=== PATIENT | male | born 1955 | race Hispanic/Latino ===

== ENCOUNTER 2017-09-02 08:41 | Day surgery (SDC) | payer OTHER, SELFPAY ==
--- NOTE | 2017-09-02 | PATH_ITS ---
[facility] Accession Number: [id number] . 01 Material submitted: . PART A: CECAL POLYP PART B: ASCENDING COLON POLYP PART C: ASCENDING COLON POLYP-LARGER ONE . 02 Diagnosis: A. Cecal Polyp: Small serrated lesion, consistent with early sessile serrated adenoma. Additional step-sections examined. . B. Ascending Colon Polyp: Colonic mucosa with no diagnostic abnormality, consistent with polypoid redundancy. Negative for serrated lesion, dysplasia or malignancy. Additional step-sections examined. . C. Ascending Colon Polyp, Larger: Sessile serrated adenoma. I/09/04/2017 . 02 Electronically signed: . Fox Sparks MD, PhD, Pathologist NPI- [id number] . 01 Gross description: . Received are three formalin-filled containers, each labeled with the patient's name: . A. In a container labeled cecal polyp, the specimen consists of two 0.1-0.3 cm portions of tissue, entirely submitted in cassette A. B. In a container labeled ascending colon polyp, the specimen consists of a 0.3 cm portion of tissue, entirely submitted in cassette B. C. In a container labeled ascending colon polyp larger, the specimen consists of a 0.5 cm portion of tissue and mucoid material, entirely submitted in cassette C. ([id number]) /FRR . 02 Pathologist provided ICD-10: D12.0, D12.2, K63.5 . 02 CPT . 904108, 560646, [id number] Performed at: 01 [facility] [address] [place] [address], [place], [place] [id number] MD Herb Jacob MD Phone: [phone] Performed at: 02 [facility] [place] [address] [place] [id number] MD Noel Amaya MD Phone: [phone]
[2017-09-02 09:22] VITALS: BP 138/84; PULSE 71; RESP 16; TEMP 36.4; O2SAT 95; BMI 29.2
[2017-09-02] MEDS: SODIUM CHLORIDE 0.9% 1,000 ML 70 ML IV (09:27)
--- NOTE | 2017-09-02 09:59 | PM.HP.1 ---
History of Present Illness Date Patient Seen: 09/02/17 Time Patient Seen: 09:59 Chief complaint: [id number] Narrative: The patient is a 62-year-old male with a history of diverticulosis who is here for colon cancer screening. He has a family history of colon polyps in his mother and his sister. A colonoscopy performed 5 years ago at the [facility] was incomplete due to difficulty traversing the sigmoid colon. Barium enema showed extensive diverticulosis in the sigmoid colon with no evidence of other mucosal abnormalities. Patient History Family & Social History Social History: household members spouse Meds Home Medications Medication Instructions Recorded Confirmed Type atorvastatin 20 mg PO DAILY 09/02/17 09/02/17 History cholecalciferol (vitamin D3) 1,000 units PO DAILY 09/02/17 09/02/17 History [Vitamin D3] hydrochlorothiazide 12.5 mg PO DAILY 09/02/17 09/02/17 History lisinopril 20 mg PO DAILY 09/02/17 09/02/17 History loratadine [Claritin] 10 mg PO DAILY PRN 09/02/17 09/02/17 History omega 6-kho-von-fish oil [Fish Oil] 720 mg PO DAILY 09/02/17 09/02/17 History sildenafil 100 mg PO DAILY PRN 09/02/17 09/02/17 History Allergies Allergy/AdvReac Type Severity Reaction Status Date / Time No Known Drug Allergies Allergy Verified 09/02/17 09:08 Review of Systems Review of Systems All systems reviewed & are unremarkable except as noted in HPI and below Exam Vital Signs (past 8 hours): - 09/02/17 09:22 Temperature 97.6 F Pulse Rate 71 Respiratory Rate 16 Blood Pressure 138/84 H Pulse Oximetry 95 Oxygen Delivery Method Room Air Narrative Exam Narrative: General: Patient is overweight, not in apparent distress Cardiovascular: Regular rate and rhythm, no murmurs, rubs, or gallops; no evidence of edema; no palpable abdominal aortic aneurysm Gastrointestinal: Normoactive bowel sounds, soft, nontender, nondistended, no rebound tenderness, no hepatosplenomegaly, no evidence of hernia Assessment & Plan Plan: Assessment/Plan Narrative: The patient is a 62-year-old male with a family history of colon polyps who is here for colon cancer screening. The patient had an incomplete colonoscopy performed 5 years ago due to probable sigmoid diverticulosis with fixation of the colon. We will attempt to perform a complete colonoscopy today however if there is significant difficulty traversing the sigmoid colon we may need to abort and perform imaging to complete the patient's evaluation. Regarding the procedure(s), the risks and potential complications, benefits, and alternatives (including not doing the procedure) were discussed with the patient. The risks include but are not limited to bleeding, infection, perforation which may require surgical intervention, missed lesions, and adverse reactions to sedative medicines. After a question and answer period, the patient agreed to proceed with the procedure(s).
--- NOTE | 2017-09-02 10:02 | P.HP_ITS ---
History of Present Illness Date Patient Seen: 09/02/17 Time Patient Seen: 09:59 Chief complaint: [id number] Narrative: The patient is a 62-year-old male with a history of diverticulosis who is here for colon cancer screening. He has a family history of colon polyps in his mother and his sister. A colonoscopy performed 5 years ago at the [facility] was incomplete due to difficulty traversing the sigmoid colon. Barium enema showed extensive diverticulosis in the sigmoid colon with no evidence of other mucosal abnormalities. Patient History Family & Social History Social History: household members spouse Meds Home Medications Medication Instructions Recorded Confirmed Type atorvastatin 20 mg PO DAILY 09/02/17 09/02/17 History cholecalciferol (vitamin D3) 1,000 units PO DAILY 09/02/17 09/02/17 History [Vitamin D3] hydrochlorothiazide 12.5 mg PO DAILY 09/02/17 09/02/17 History lisinopril 20 mg PO DAILY 09/02/17 09/02/17 History loratadine [Claritin] 10 mg PO DAILY PRN 09/02/17 09/02/17 History omega 8-xaw-zwz-fish oil [Fish Oil] 720 mg PO DAILY 09/02/17 09/02/17 History sildenafil 100 mg PO DAILY PRN 09/02/17 09/02/17 History Allergies Allergy/AdvReac Type Severity Reaction Status Date / Time No Known Drug Allergies Allergy Verified 09/02/17 09:08 Review of Systems Review of Systems All systems reviewed & are unremarkable except as noted in HPI and below Exam Vital Signs (past 8 hours): - 09/02/17 09:22 Temperature 97.6 F Pulse Rate 71 Respiratory Rate 16 Blood Pressure 138/84 H Pulse Oximetry 95 Oxygen Delivery Method Room Air Narrative Exam Narrative: General: Patient is overweight, not in apparent distress Cardiovascular: Regular rate and rhythm, no murmurs, rubs, or gallops; no evidence of edema; no palpable abdominal aortic aneurysm Gastrointestinal: Normoactive bowel sounds, soft, nontender, nondistended, no rebound tenderness, no hepatosplenomegaly, no evidence of hernia Assessment & Plan Plan: Assessment/Plan Narrative: The patient is a 62-year-old male with a family history of colon polyps who is here for colon cancer screening. The patient had an incomplete colonoscopy performed 5 years ago due to probable sigmoid diverticulosis with fixation of the colon. We will attempt to perform a complete colonoscopy today however if there is significant difficulty traversing the sigmoid colon we may need to abort and perform imaging to complete the patient's evaluation. Regarding the procedure(s), the risks and potential complications, benefits, and alternatives (including not doing the procedure) were discussed with the patient. The risks include but are not limited to bleeding, infection, perforation which may require surgical intervention, missed lesions, and adverse reactions to sedative medicines. After a question and answer period, the patient agreed to proceed with the procedure(s).
--- NOTE | 2017-09-02 10:02 | PM.OP.ENDO ---
Operative Date/Time/Diagnoses Date of procedure: 09/02/17 Time of procedure: 10:02 Procedure Notes Procedure in detail: Surgeon: Manuel Best MD Procedure: Colonoscopy with snare polypectomy and polypectomy via biopsy Preoperative diagnosis: Colon cancer screening, family history of colon polyps in multiple 1st degree relatives Postoperative diagnosis: Colon polyp status post polypectomy, diverticulosis, grade 1 internal hemorrhoids Medications: Conscious sedation using 5 mg IV of Midazolam and 100 mcg IV of Fentanyl Preanesthesia Assessment An H and P was performed/updated and the Px?s ASA class is 2. The procedure was discussed in detail with the patient. The potential risks and complications including infection, bleeding, missed lesions, perforation, need for surgery in case of perforation, prolonged hospital stay, and were explained. A brief question and answer period was allotted and once all questions were answered, informed consent was obtained. The patient was brought back to the procedure room and placed on standard monitoring. The patient?s vital signs were monitored continuously throughout the entire procedure. Prior to starting, a timeout was performed to confirm the patient?s identity, allergies, medications, and procedure. Procedure in detail The patient was placed in left lateral decubitus position and once adequate sedation was obtained a KIRILL was performed. The digital rectal exam did not reveal any palpable lesions. The tip of the colonoscope was placed in the anal canal and advanced without difficulty all the way to the cecum which was identified by the appendiceal orifice and ileocecal valve. Terminal ileum was intubated for distance of 5 mm with no evidence of mucosal abnormality. The colonoscope was brought back to the cecum and careful examination of all norris of the colon was performed with irrigation of any residual stool. In the cecum there was note of a 2 mm sessile polyp which was removed in its entirety by means of a cold Jumbo forceps with minimal bleeding. In the ascending colon a 3 mm sessile polyp was removed in its entirety by means of a cold Jumbo forceps with minimal bleeding. A 3rd polyp was found in the ascending colon this measured 10 mm and was sessile. This was removed by means of a hot snare with no bleeding. There was note of scattered diverticula in the ascending colon and multiple medium to large-sized diverticula in the sigmoid colon. Examination of the remainder of the colon revealed no further polyps. Retroflexion was performed in the rectum which revealed grade 1 internal hemorrhoids. The patient tolerated the procedure well and will be brought back to the recovery area to be discharged once criteria are met. The prep was judged to be good/excellent and adequate to identify polyps less than 5 mm. The withdrawal time was 11 min. The total procedure time from initial sedation was 20 min. Complications There were no complications and estimated blood loss was minimal. Recommendations: Resume previous diet Continue outPx medications Follow up pathology results Repeat colonoscopy in 3 or 5 years depending on pathology results An emergency contact number was given to the patient for any complications related to the procedure
--- NOTE | 2017-09-02 10:03 | PM.DS.1 ---
History of Present Illness Chief complaint: [id number] Narrative: The patient is a 62-year-old male with a history of diverticulosis who is here for colon cancer screening. He has a family history of colon polyps in his mother and his sister. A colonoscopy performed 5 years ago at the [facility] was incomplete due to difficulty traversing the sigmoid colon. Barium enema showed extensive diverticulosis in the sigmoid colon with no evidence of other mucosal abnormalities. Discharge Providers Discharge provider: Manuel Best MD Exam Vital Signs (past 8 hours): - 09/02/17 09:22 Temperature 97.6 F Pulse Rate 71 Respiratory Rate 16 Blood Pressure 138/84 H Pulse Oximetry 95 Oxygen Delivery Method Room Air Narrative Exam Narrative: General: Patient is overweight, not in apparent distress Cardiovascular: Regular rate and rhythm, no murmurs, rubs, or gallops; no evidence of edema; no palpable abdominal aortic aneurysm Gastrointestinal: Normoactive bowel sounds, soft, nontender, nondistended, no rebound tenderness, no hepatosplenomegaly, no evidence of hernia Discharge Plan Discharge Plan Patient Disposition: Home, Self-Care Discharge comment: Remove IV prior to discharge Discharge to home once criteria are met (positive flatus, stable vital signs, no abdominal pain, tolerating p.o.) Discharge Med Rec/Prescriptions Prescriptions: Continue atorvastatin 20 mg Tablet 20 mg PO DAILY RF: 0 lisinopril 20 mg Tablet 20 mg PO DAILY RF: 0 sildenafil 100 mg Tablet 100 mg PO DAILY PRN (Reason: Erectile Dysfunction) RF: 0 hydrochlorothiazide 12.5 mg Capsule 12.5 mg PO DAILY RF: 0 loratadine [Claritin] 10 mg Tablet 10 mg PO DAILY PRN (Reason: Allergic Symptoms) RF: 0 cholecalciferol (vitamin D3) [Vitamin D3] 1,000 unit Capsule 1,000 units PO DAILY RF: 0 omega 0-ptx-wsn-fish oil [Fish Oil] 1,000 mg (120 mg-180 mg) Capsule 720 mg PO DAILY RF: 0 Discharge Orders: Discharge (Order); Ordered 09/02/17 Ordered By: Manuel Best Provider Discharge Instructions Diet: Diet as Tolerated Visit Report/Discharge Packet Stand Alone Forms: Colonoscopy Result, Surgery Discharge Discharge Data Attending Provider: Manuel Best
[2017-09-02] MEDS: MIDAZOLAM 5 MG/5 ML VIAL IV (10:24)
[2017-09-02] MEDS: fentaNYL 250 MCG/5 ML INJ IV (10:25)
[2017-09-02 10:32] VITALS: BP 129/73; PULSE 92; RESP 16; TEMP 36.7; O2SAT 94
== END 2017-09-02 10:44 | disposition home or self-care (01) ==
PROVIDERS: Visit Provider Internal Medicine Gastroenterology
PROC: 0DJD8ZZ Inspection of Lower Intestinal Tract, Via Natural or Artificial Opening Endoscopic (ICD-10-PCS; CPT 45378; principal; 2017-09-02 10:00)
DX: Z12.11 Encounter for screening for malignant neoplasm of colon (principal); Z80.0 Family history of malignant neoplasm of digestive organs; K57.30 Diverticulosis of large intestine without perforation or abscess without bleeding; K64.0 First degree hemorrhoids; D12.0 Benign neoplasm of cecum; D12.2 Benign neoplasm of ascending colon; K63.5 Polyp of colon
CPT/HCPCS: 45385; 45380; 88305; J2250; J3010

== ENCOUNTER → 2021-11-28 09:35 | Outpatient (CLI) | payer MEDICARE, OTHER, SELFPAY ==
[2021-11-28 11:20] LABS: COVID19 -Nasal RAPID Negative (Negative)
== END ==
PROVIDERS: PCP Internal Medicine; Visit Provider Surgery
DX: Z20.822 Contact with and (suspected) exposure to COVID-19 (principal); Z01.812 Encounter for preprocedural laboratory examination
CPT/HCPCS: 87635; C9803

== ENCOUNTER 2021-11-29 07:32 | Day surgery (SDC) | payer MEDICARE, OTHER, SELFPAY ==
[2021-11-29 07:48] VITALS: BP 154/94; PULSE 70; RESP 16; TEMP 36.1; O2SAT 98; BMI 25.1
--- NOTE | 2021-11-29 07:56 | PM.HP.1 ---
History of Present Illness History of Present Illness Date Patient Seen: 11/29/21 Time Patient Seen: 07:56 Chief complaint: Colonoscopy Narrative: Mr. Reynoso presents today for screening colonoscopy. His last colonoscopy was in 2018 and some serrated adenomatous polyps were biopsied. 5 mg of versed and 100 of fentanyl were used for sedation. Overall he says he did well with that and the prep is gone well. His sister and his mother both have had close quote clusters of polyps? that are being followed but no family history of colon cancer. He himself has had no alarm symptoms. He has occasional diarrhea that resolves in a day he is unsure why but denies bloody bowel movements or any progressive change in his bowel movements. Patient History Comment: Patient states he used to have hypertension but is now off all medicines for this because he has changed his diet and started exercising. Previous surgeries: He had an oral surgery for pleomorphic adenoma [place] Please disregard the medication list on this H and P the patient takes no medications he states that he has lost weight and is off all of his medications the last 1 was stopped about 2 months ago. Family & Social History Social History: household members spouse Comment: No family history of colon cancer or problems with anesthesia. Meds Home Medications and Allergies Home Medications Medication Instructions Recorded Confirmed Type atorvastatin 20 mg tablet 20 mg PO DAILY 09/02/17 09/02/17 History cholecalciferol (vitamin D3) 25 1,000 units PO DAILY 09/02/17 09/02/17 History mcg (1,000 unit) capsule (Vitamin D3) hydrochlorothiazide 12.5 mg capsule 12.5 mg PO DAILY 09/02/17 09/02/17 History lisinopril 20 mg tablet 20 mg PO DAILY 09/02/17 09/02/17 History loratadine 10 mg tablet (Claritin) 10 mg PO DAILY PRN Allergic 09/02/17 09/02/17 History Symptoms omega 7-irj-emi-fish oil 1,000 mg 720 mg PO DAILY 09/02/17 09/02/17 History (120 mg-180 mg) capsule (Fish Oil) sildenafil 100 mg tablet 100 mg PO DAILY PRN Erectile 09/02/17 09/02/17 History Dysfunction sodium,potassium,mag sulfates 17.5 See Rx Instructions PO .COMPLEX 10/23/21 Rx gram-3.13 gram-1.6 gram oral soln #354 mL (Suprep Bowel Prep Kit) Allergies Allergy/AdvReac Type Severity Reaction Status Date / Time No Known Drug Allergies Allergy Verified 09/02/17 09:08 Exam Const General: cooperative, healthy appearing and comfortable HENMT Head: normal to inspection Eyes General: appearance normal, both eyes and all related structures Neck Neck: normal visual inspection Resp Effort & Inspection: normal respiratory effort and able to speak in complete sentences Cardio Rate: regular rate Rhythm: regular rhythm GI Inspection: normal to inspection Palpation: No tender Extrem General: normal to inspection Assessment & Plan Assessment and plan (1) Screening for colon cancer: Status: Acute Plan I discussed the risks benefits and alternatives of screening colonoscopy including but not limited to complications with conscious sedation and perforation. Patient understands these risks and would like to proceed Time Spent With Patient Critical Care time: I spent a total of [] minutes of critical care time on this patient's care today; this time is exclusive of procedural time.
[2021-11-29] MEDS: LACTATED RINGERS 1,000 ML 84 ML IV (07:58)
[2021-11-29] MEDS: fentaNYL 100 MCG/2 ML INJ 150 MCG IV (09:18)
[2021-11-29] MEDS: MIDAZOLAM 5 MG/5 ML VIAL 6 MG IV (09:18)
--- NOTE | 2021-11-29 09:41 | PM.OP.COLON ---
Procedure & Clinicians Study performed: Colonoscopy Same procedure as scheduled: Yes Indications: Screening Surgeon: Verna Hernandez Procedure Notes Procedure in detail: Patient was taken to the endoscopy suite placed in the left lateral decubitus position a time-out was performed. The a digital rectal exam was performed there were some external hemorrhoids appreciated. Otherwise the digital rectal exam was normal. The colonoscope was then introduced. There was some difficulty rounding through the sigmoid and descending colon due to a large number of very large diverticula. Further the prep was not perfect. There was some solid stool within the diverticula as well as green staining over the entire norris of the cecum and ascending colon. After advancing completely to the cecum and obtaining a photograph the appendiceal orifice I did make an attempt to clean the stained the norris as much as possible. No polyps were appreciated. There were some smaller right-sided diverticula seen. Withdrawal time was 17 minutes including irrigation and cleaning of the prep. Patient tolerated the procedure well and received a total of 6 mg of Versed and 150 mcg of fentanyl. There were no complications the patient when good condition to the postoperative care unit. Scope withdrawal time: 17 Sedation minutes: 41 Findings: divertiulosis Specimen(s): none sent Complications: none Post-procedure Recommendations: Colonoscopy in 10 years Disposition: PACU
[2021-11-29 09:46] VITALS: BP 121/79; PULSE 64; RESP 10; TEMP 36.8; O2SAT 95
[2021-11-29 09:51] VITALS: BP 118/85; PULSE 61; RESP 9; O2SAT 95
--- NOTE | 2021-11-29 09:55 | SUR.PHASEI ---
0956 pt a/o/x4, sitting up in bed drinking radhames ian.
[2021-11-29 09:56] VITALS: BP 117/81; PULSE 73; RESP 17; O2SAT 96
[2021-11-29 10:01] VITALS: BP 128/88; PULSE 69; RESP 17; TEMP 36.7; O2SAT 96
[2021-11-29 10:25] VITALS: BP 133/81; PULSE 66; RESP 16; TEMP 36.6; O2SAT 97
== END 2021-11-29 10:35 | disposition home or self-care (01) ==
PROVIDERS: PCP Internal Medicine; Referring Provider Surgery; Visit Provider Surgery
PROC: 0DJD8ZZ Inspection of Lower Intestinal Tract, Via Natural or Artificial Opening Endoscopic (ICD-10-PCS; CPT 45378; principal; 2021-11-29 08:45)
DX: Z12.11 Encounter for screening for malignant neoplasm of colon (principal); Z86.010 Personal history of colon polyps; K57.30 Diverticulosis of large intestine without perforation or abscess without bleeding
CPT/HCPCS: G0105; 99152; 99153; J2250; J3010